=== PATIENT | male | born 1970 | race Hispanic/Latino ===

== ENCOUNTER 2017-04-24 15:31 | Emergency (ER) | payer SELFPAY ==
[~2017-04-24] VITALS: Ht 180.3 cm; Wt 109.0 kg
[2017-04-24] MEDS ORDERED: ERYTHROMYCIN O3.5 GM OU (16:08)
[2017-04-24 16:23] VITALS: BP 150/99
== END 2017-04-24 16:24 | disposition home or self-care (01) | DRG 125 ==
LOC: ED 15:31
DX: H10.9 Unspecified conjunctivitis (principal); F17.210 Nicotine dependence, cigarettes, uncomplicated

== ENCOUNTER 2017-04-25 19:24 | Emergency (ER) | payer SELFPAY ==
[~2017-04-25 19:24] MED LIST: ERYTHROMYCIN O3.5 GM OU
[2017-04-26] MEDS ORDERED: CIPROFLOXACN0.3 % OU (13:05)
== END 2017-04-25 19:52 | disposition left against medical advice (07) | DRG 951 ==
LOC: ED 19:24 → LWOBS 19:52 → ED 19:52
DX: Z91.19 Patient's noncompliance with other medical treatment and regimen (principal)

== ENCOUNTER 2017-04-26 12:45 | Emergency (ER) | payer SELFPAY ==
[~2017-04-26] VITALS: Ht 180.3 cm; Wt 100.0 kg
[2017-04-26] MEDS ORDERED: CIPROFLOXACN0.3 % OU (13:05)
[2017-04-26 13:35] VITALS: BP 140/88
== END 2017-04-26 13:20 | disposition home or self-care (01) | DRG 125 ==
LOC: ED 12:45
DX: H10.9 Unspecified conjunctivitis (principal); H57.13 Ocular pain, bilateral

== ENCOUNTER 2018-01-23 10:56 | Emergency (ER) | payer SELFPAY ==
[~2018-01-23] VITALS: Ht 180.3 cm; Wt 118.2 kg
[~2018-01-23 10:56] MED LIST changes: +CIPROFLOXACN0.3 % OU
[2018-01-23] MEDS ORDERED: LISINOPRIL10 MG PO (11:41)
[2018-01-23 11:54] VITALS: BP 136/89
== END 2018-01-23 11:54 | disposition home or self-care (01) | DRG 305 ==
LOC: ED 10:56
DX: I10 Essential (primary) hypertension (principal); F17.210 Nicotine dependence, cigarettes, uncomplicated; R51 Headache

== ENCOUNTER 2018-02-18 23:36 | Emergency (ER) | payer SELFPAY ==
[~2018-02-18] VITALS: Ht 180.3 cm; Wt 122.7 kg
[~2018-02-18 23:36] MED LIST changes: +LISINOPRIL10 MG PO
[2018-02-19] MEDS ORDERED: VOLTAREN - GENE75 MG PO (00:26)
[2018-02-19 00:45] VITALS: BP 156/87
== END 2018-02-19 00:48 | disposition home or self-care (01) | DRG 74 ==
LOC: ED 23:36
DX: G57.52 Tarsal tunnel syndrome, left lower limb (principal); S84.02XA Injury of tibial nerve at lower leg level, left leg, initial encounter; I10 Essential (primary) hypertension; F17.210 Nicotine dependence, cigarettes, uncomplicated; X58.XXXA Exposure to other specified factors, initial encounter; Y93.89 Activity, other specified